=== PATIENT | female | born 1995 | race Caucasian/White ===

== ENCOUNTER 2024-01-30 13:13 | Outpatient (CLI) | payer OTHER ==
[2024-01-30] MEDS ORDERED: Sterile Water 10 ML ONE (14:38)
[2024-01-30] MEDS ORDERED: Bacteriostatic Normal Saline 30 ML VIAL ONE (14:39)
== END 2024-01-30 13:14 | disposition home or self-care (01) ==
LOC: NM 13:13
PROVIDERS: ATTEND Surgery
DX: R10.13 Epigastric pain (principal)
CPT/HCPCS: 78227; A9537